=== PATIENT | male | born 1975 | race African-American/Black ===

== ENCOUNTER → 2016-05-05 | Outpatient (CLI) | payer OTHER ==
--- NOTE | 2016-05-05 14:06 | RAD ---
EXAM: Right ankle, 3 views. HISTORY: Pain. COMPARISON: None. FINDINGS: Frontal, lateral and mortise views of the right ankle are obtained. There is internal fixation of the distal fibular and tibial metaphyses. No acute fracture is seen. The ankle mortises intact. There is soft tissue swelling. There is enthesopathy at the Achilles tendon insertion. IMPRESSION: 1. Fracture fixation is limitation within the distal fibular and tibial metaphyses. 2. Soft tissue swelling.
== END | disposition home or self-care (01) ==
LOC: DXRADRC 13:46
PROVIDERS: ATTEND Orthopaedic Surgery Sports Medicine
DX: M25.572 Pain in left ankle and joints of left foot (principal); S99.912A Unspecified injury of left ankle, initial encounter
CPT/HCPCS: 73610